=== PATIENT | female | born 1950 | race Caucasian/White ===

== ENCOUNTER 2018-03-30 23:11 | Observation (INO) | payer OTHER ==
--- NOTE | 2018-03-30 23:33 | PDOC ---
Attending Attestation - HPI HPI: 03/30/18 23:54 The patient is a 67 year old female, from [address] [place] [address], with a significant PMH of CVA, hypothyroidism, who presents to the emergency department via EMS with 2 episodes of brown colored emesis beginning at 7 pm this evening. The patient also endorses a mild headache. The patient denies any recent abdominal pain or cramping. Denies any recent sick contacts or travel. The patient denies chest pain, shortness of breath and dizziness. Denies fever, chills, diarrhea and constipation. Denies dysuria, frequency, urgency and hematuria. Allergies: Penicillins Documentation prepared by Mal Oliveira, acting as medical technologist for Nila Day MD. - Physicial Exam PE: 03/30/18 23:56 GENERAL: Awake, alert, and fully oriented, in no acute distress HEAD: No signs of trauma EYES: PERRLA, EOMI, sclera anicteric, conjunctiva clear ENT: Auricles normal inspection, hearing grossly normal, nares patent, oropharynx clear without exudates. Moist mucosa NECK: Normal ROM, supple, no lymphadenopathy, JVD, or masses LUNGS: Breath sounds equal, clear to auscultation bilaterally. No wheezes, and no crackles HEART: Regular rate and rhythm, normal S1 and S2, no murmurs, rubs or gallops ABDOMEN: Soft, nontender, normoactive bowel sounds. No guarding, no rebound. No masses EXTREMITIES: Normal range of motion, no edema. No clubbing or cyanosis. No cords, erythema, or tenderness NEUROLOGICAL: Moving all extremities. 4/5 strength in lower extremities. (+) Slightly slurred speech. Cranial nerves II through XII grossly intact. SKIN: Warm, Dry, normal turgor, no rashes or lesions noted. <Mal Oliveira - Last Filed: 03/30/18 23:56> - Resident Resident Name: Chito Carlton - ED Attending Attestation I have performed the following: I have examined & evaluated the patient, The case was reviewed & discussed with the resident, I agree w/resident's findings & plan - Medical Decision Making 03/30/18 23:42 Pt has coffee ground emesis. Rectal guaiac is negative, though stool is a brownish red. We will check all labs and admit for GI consult. 03/31/18 01:15 Pt's BUN/Cr are elevated. Reflecting that she is dry. 03/31/18 02:[address] Menjivar. <Nila Day - Last Filed: 03/31/18 02:35>
[2018-03-30] MEDS ORDERED: PANTOPRAZOLE SODIUM 40 MG in SODIUM CHLORIDE 100 ML IVPB ONE (23:39)
[2018-03-30] MEDS ORDERED: SODIUM CHLORIDE 1,000 ML IV STA (23:39)
[2018-03-30] MEDS ORDERED: ONDANSETRON 4 MG/2 ML VIAL IVPUSH ONE (23:39)
[2018-03-30] MEDS ORDERED: PANTOPRAZOLE SODIUM 40 MG/100 ML BAG IVPB ONE (23:48)
[2018-03-30] MEDS ORDERED: ONDANSETRON 4 MG/2 ML VIAL ONE (23:48)
--- NOTE | 2018-03-31 00:05 | PDOC ---
History of Present Illness - General Chief Complaint: Coffee Ground Emesis Stated Complaint: VOMITING Time Seen by Provider: 03/30/18 23:29 History Source: Patient Exam Limitations: No Limitations - History of Present Illness Initial Comments: 03/31/18 00:00 Patient is a 67F with history of hypothyroidism and stroke in 2010 w residual left sided weakness [facility] from [facility] here today complaining of 2 episodes of coffee ground emesis that started at 7pm. Patient describes two episodes of brown grainy vomit. Denies chest pain, abdominal pain, shortness of breath. Denies any changes to her weakness. Patient denies this happening before. Denies diarrhea, melena, blood in bowel movements. Takes aspirin, no blood thinners. Denies NSAID use otherwise. Past History - Past Medical History Allergies/Adverse Reactions: Allergies Allergy/AdvReac Type Severity Reaction Status Date / Time Penicillins Allergy Verified 03/30/18 23:27 COPD: No Hypercholesterolemia: Yes Psychiatric Problems: Yes (DEPRESSION) Thyroid Disease: Yes (HYPOTHYROID) Other medical history: CVA - Suicide/Smoking/Psychosocial Hx Smoking History: Never smoked Review of Systems - Review of Systems Comments:: 03/31/18 00:05 GENERAL/CONSTITUTIONAL: No fever or chills. HEAD, EYES, EARS, NOSE AND THROAT: No change in vision. No sore throat. CARDIOVASCULAR: No chest pain or shortness of breath RESPIRATORY: No cough, wheezing, or hemoptysis. GASTROINTESTINAL: +nausea, +vomiting, no diarrhea or constipation. GENITOURINARY: No dysuria, frequency, or change in urination. MUSCULOSKELETAL: No joint or muscle swelling or pain. No neck or back pain. SKIN: No rash NEUROLOGIC: No headache, vertigo, loss of consciousness, or change in strength/ sensation. ENDOCRINE: No increased thirst. No abnormal weight change HEMATOLOGIC/LYMPHATIC: No anemia, easy bleeding, or history of blood clots. ALLERGIC/IMMUNOLOGIC: No hives or skin allergy. *Physical Exam - Vital Signs Last Vital Signs Temp Pulse Resp BP Pulse Ox 97.7 F 88 18 147/84 97 03/30/18 23:22 03/30/18 23:22 03/30/18 23:22 03/30/18 23:22 03/30/18 23:22 - Physical Exam Comments: 03/31/18 00:05 GENERAL: Awake, alert, and fully oriented, in no acute distress HEAD: No signs of trauma, normocephalic, atraumatic EYES: PERRLA, EOMI, sclera anicteric, conjunctiva clear ENT: Auricles normal inspection, hearing grossly normal, nares patent, oropharynx clear without exudates. Moist mucosa NECK: Normal ROM, supple, no lymphadenopathy, JVD, or masses LUNGS: No distress, speaks full sentences, clear to auscultation bilaterally HEART: Regular rate and rhythm, normal S1 and S2, no murmurs, rubs or gallops, peripheral pulses normal and equal bilaterally. ABDOMEN: Soft, nontender, normoactive bowel sounds. No guarding, no rebound. No masses EXTREMITIES: Normal inspection, Normal range of motion, no edema. No clubbing or cyanosis. NEUROLOGICAL: Cranial nerves II through XII grossly intact. Normal speech, normal gait, L sided facial droop, l arm/leg weakness SKIN: Warm, Dry, normal turgor, no rashes or lesions noted. RECTAL: No garrett blood, normal rectal tone, no masses, brown stool. Moderate Sedation - Procedure Monitoring Vital Signs: Procedure Monitoring Vital Signs Temperature 97.7 F 03/30/18 23:22 Pulse Rate 88 03/30/18 23:22 Respiratory Rate 18 03/30/18 23:22 Blood Pressure 147/84 03/30/18 23:22 O2 Sat by Pulse Oximetry (%) 97 03/30/18 23:22 ED Treatment Course - LABORATORY CBC & Chemistry Diagram: 03/30/18 23:45 03/30/18 23:45 - ADDITIONAL ORDERS Additional order review: Laboratory Results 03/30/18 23:44 Stool Occult Blood Negative - RADIOLOGY Radiology Studies Ordered: Category Date Time Status CHEST X-RAY PORTABLE* [RAD] Stat Radiology 03/30/18 23:39 Ordered - Medications Given in the ED: ED Medications Discontinued Medications Generic Name Dose Route Start Last Admin Trade Name Freq PRN Reason Stop Dose Admin Ondansetron HCl 4 mg 03/30/18 23:39 03/30/18 23:57 Zofran Injection IVPUSH 03/30/18 23:40 4 mg ONCE ONE Administration Medical Decision Making - Medical Decision Making 03/31/18 00:06 Patient is 67F with history of stroke and hypothyroidism here today with coffee ground emesis. Vitals normal and stable. Likely GI bleed. Nontender abdomen, do not suspect performation. Suspect upper over lower bleed. No prior baseline available. Will workup with cbc, cmp, retic, stool for occult blood, ekg, cxr. FOBT negative. 03/31/18 00:48 CBC normal. CMP reassuring, does show Cr 1.5. CXR clear. D/w [place], will obs. Patient stable. *DC/Admit/Observation/Transfer Diagnosis at time of Disposition: Coffee ground emesis - Discharge Dispostion Condition at time of disposition: Stable Decision to Admit order: Yes - Referrals - Patient Instructions - Post Discharge Activity
[2018-03-31 00:08] LABS: BASO % 0.2 % (0-2.0); EOS % 0.4 % (0-4.5); HEMATOCRIT 42.5 % (32.4-45.2); HEMOGLOBIN 14.9 GM/dL (10.7-15.3); LYMPH % 3.7 % (8-40); MCH 32.4 pg (25.7-33.7); MCHC 35.1 g/dl (32.0-36.0); MEAN CELL VOLUME 92.1 fl (80-96); MEAN PLT VOLUME 9.1 fl (7.5-11.1); MONO % 2.4 % (3.8-10.2); NEUT % 93.3 % (42.8-82.8); PLATELET COUNT 344 K/MM3 (134-434); RBC 4.62 M/mm3 (3.60-5.2); RDW 13.5 % (11.6-15.6); RETICULOCYTES 1.22 % (0.5-1.5); WHITE BLOOD COUNT 12.9 K/mm3 (4.0-10.0)
[2018-03-31 00:34] LABS: INR 1.06 (0.83-1.09); PROTHROMBIN TIME (PATIENT) 12.5 SEC (9.7-13.0)
[2018-03-31 00:37] LABS: ALBUMIN 4.2 g/dl (3.4-5.0); ALK PHOS 103 U/L (45-117); ANION GAP 9 MMOL/L (8-16); BILIRUBIN,TOTAL 0.8 mg/dL (0.2-1); BLOOD UREA NITROGEN 23 mg/dL (7-18); CALCIUM 9.1 mg/dL (8.5-10.1); CHLORIDE 104 mmol/L (98-107); CO2 27 mmol/L (21-32); CREATININE 1.5 mg/dL (0.55-1.3); GLUCOSE,RANDOM 127 mg/dL (74-106); POTASSIUM 3.7 mmol/L (3.5-5.1); SGOT/AST 40 U/L (15-37); SGPT/ALT 47 U/L (13-61); SODIUM 140 mmol/L (136-145); TOT PROT 7.7 g/dl (6.4-8.2)
[2018-03-31 04:35] VITALS: BMI 30.5
[2018-03-31] MEDS: LEVOTHYROXINE NA 25 MCG TABLET (FP) PO SCH (06:09)
[2018-03-31 07:37] LABS: BASO % 0.2 % (0-2.0); EOS % 0.1 % (0-4.5); HEMATOCRIT 39.3 % (32.4-45.2); HEMOGLOBIN 13.8 GM/dL (10.7-15.3); LYMPH % 5.8 % (8-40); MCH 32.4 pg (25.7-33.7); MCHC 35.1 g/dl (32.0-36.0); MEAN CELL VOLUME 92.1 fl (80-96); MEAN PLT VOLUME 9.1 fl (7.5-11.1); MONO % 2.4 % (3.8-10.2); NEUT % 91.5 % (42.8-82.8); PLATELET COUNT 328 K/MM3 (134-434); RBC 4.27 M/mm3 (3.60-5.2); RDW 13.6 % (11.6-15.6); WHITE BLOOD COUNT 8.1 K/mm3 (4.0-10.0)
[2018-03-31 08:28] LABS: ANION GAP 7 MMOL/L (8-16); BLOOD UREA NITROGEN 20 mg/dL (7-18); CALCIUM 8.3 mg/dL (8.5-10.1); CHLORIDE 106 mmol/L (98-107); CO2 26 mmol/L (21-32); CREATININE 1.4 mg/dL (0.55-1.3); GLUCOSE,RANDOM 114 mg/dL (74-106); POTASSIUM 4.1 mmol/L (3.5-5.1); SODIUM 139 mmol/L (136-145)
[2018-03-31 10:04] LABS: ANISOCYTOSIS 2+; MACROCYTOSIS 0; OVALOCYTE 1+; PLATELET ESTIMATE NORMAL; TEAR DROP CELLS 1+
[2018-03-31 10:12] LABS: ANISOCYTOSIS 2+; MACROCYTOSIS 0; PLATELET ESTIMATE NORMAL
--- NOTE | 2018-03-31 12:47 | EKG ---
Test Reason : Blood Pressure : / mmHG Vent. Rate : 096 BPM Atrial Rate : 096 BPM P-R Int : 190 ms QRS Dur : 068 ms QT Int : 354 ms P-R-T Axes : 056 047 063 degrees QTc Int : 447 ms NORMAL SINUS RHYTHM NONSPECIFIC T WAVE ABNORMALITY ABNORMAL ECG NO PREVIOUS ECGS AVAILABLE Confirmed by THEODORE KUHN MD ([id number]) on 03/31/2018 12:46:54 PM Referred By: Confirmed By:THEODORE KUHN MD
--- NOTE | 2018-03-31 12:52 | CON.GI ---
Consult Consult Specialty:: covering for Dr Willson Referred by:: Dr Menjivar - History of Present Illness History of Present Illness: 67 y/o F with history of CVA, on chronic Aspirin was doing well until last evening when she developed coffee groing vomitus twice. In the ER, she was guaic negative. She denies, nausea, vomiting, dysphagia, rectal bleeding and melena. Her HGB was 13 on admission. - Past Medical History ...: No - Alcohol/Substance Use Hx Alcohol Use: No - Smoking History Smoking history: Never smoked Have you smoked in the past 12 months: No Home Medications - Allergies Allergies/Adverse Reactions: Allergies Allergy/AdvReac Type Severity Reaction Status Date / Time Penicillins Allergy Verified 03/30/18 23:27 - Home Medications Home Medications: Ambulatory Orders Atorvastatin Calcium PO DAILY 03/31/18 Desvenlafaxine Succinate ER PO DAILY 03/31/18 Levothyroxine Sodium PO DAILY 03/31/18 Family Disease History - Family Disease History Family History: Denies (colon and gastric cancer) Physical Exam-GI Vital Signs: Vital Signs Temperature 99.2 F 03/31/18 06:00 Pulse Rate 96 H 03/31/18 06:00 Respiratory Rate 18 03/31/18 06:00 Blood Pressure 140/81 03/31/18 06:00 O2 Sat by Pulse Oximetry (%) 96 03/31/18 04:19 Constitutional: Yes: Obese Eyes: Yes: Conjunctiva Clear HENT: Yes: Atraumatic Neck: Yes: Supple Cardiovascular: Yes: Regular Rate and Rhythm Respiratory: Yes: CTA Bilaterally ...Palpate: Yes: Soft, Tenderness, Epigastium (--mild). No: Firm/Rigid, Guarding, Hepatomegaly, Mass, Pulsatile Mass, Splenomegaly, Tenderness Labs: CBC, BMP 03/31/18 07:00 03/31/18 07:00 INR, PTT INR 1.06 (0.83-1.09) 03/30/18 23:58 Home Medications Medication Instructions Recorded Atorvastatin Calcium PO DAILY 03/31/18 Desvenlafaxine Succinate ER PO DAILY 03/31/18 Levothyroxine Sodium PO DAILY 03/31/18 Active Medications Generic Name Dose Route Start Last Admin Trade Name Freq PRN Reason Stop Dose Admin Atorvastatin Calcium 80 mg 03/31/18 22:00 Lipitor - PO HS [facility]ALF Levothyroxine Sodium 25 mcg 03/31/18 07:00 03/31/18 06:09 Synthroid - PO 25 mcg DAILY@0700 [facility] Administration Metoclopramide HCl 10 mg 03/31/18 17:00 Reglan Injection - IVPB Q8H [facility] Ondansetron HCl 4 mg 03/31/18 13:31 Zofran Injection IVPUSH Q4H PRN NAUSEA AND/OR VOMITING Venlafaxine HCl 75 mg 04/01/18 22:00 Effexor Xr - PO HS [facility] Problem List - Problems (1) Coffee ground emesis Assessment/Plan: r/o peptic ulcer disease R> continue IV PPI Reglan 10 mg q 8 because of severe nausea despite Zofran For EGD advance diet Dr Willson will see patient tomorrow Code(s): K92.0 - HEMATEMESIS
--- NOTE | 2018-03-31 13:40 | HP ---
Admitting History and Physical - Admission History of Present Illness: Patient is a 67F with history of hypothyroidism and stroke in 2010 w residual left sided weakness [facility] from [facility] complaining of 2 episodes of coffee ground emesis that started at 7pm day of admission . Patient describes two episodes of brown grainy vomit. Denies chest pain, abdominal pain , shortness of breath. Denies any changes to her weakness. Patient denies this happening before. Denies diarrhea, melena, blood in bowel movements. Takes aspirin, no blood thinners. Denies NSAID use otherwise. No change in diet. Patient has GI in [facility] last colonscopy 7 yrs ago. History Source: Patient, Medical Record Limitations to Obtaining History: No Limitations - Past Medical History [employer]: Yes: CVA Gastrointestinal: No: Gastritis, GI Bleed, Inflamatory Bowel Disease, Irritable Bowel Disease, Peptic Ulcer Disease Reproductive: Yes: Postmenopausal ...: No - Smoking History Smoking history: Never smoked Have you smoked in the past 12 months: No - Alcohol/Substance Use Hx Alcohol Use: No - Social History Usual Living Arrangement: Yes: Assisted Living ADL: Support Services History of Recent Travel: No Home Medications - Allergies Allergies/Adverse Reactions: Allergies Allergy/AdvReac Type Severity Reaction Status Date / Time Penicillins Allergy Verified 03/30/18 23:27 - Home Medications Home Medications: Ambulatory Orders Atorvastatin Calcium PO DAILY 03/31/18 Desvenlafaxine Succinate ER PO DAILY 03/31/18 Levothyroxine Sodium PO DAILY 03/31/18 Review of Systems - Review of Systems Constitutional: reports: No Symptoms Eyes: reports: No Symptoms HENT: reports: No Symptoms Neck: reports: No Symptoms Cardiovascular: reports: No Symptoms Respiratory: reports: No Symptoms Gastrointestinal: reports: No Symptoms. denies: Abdominal Pain, Bloating, Constipation, Diarrhea, Indigestion Genitourinary: reports: No Symptoms Breasts: reports: No Symptoms Reported Musculoskeletal: reports: No Symptoms Integumentary: reports: No Symptoms Neurological: reports: No Symptoms Endocrine: reports: No Symptoms Hematology/Lymphatic: reports: No Symptoms Psychiatric: reports: No Symptoms Physical Examination Vital Signs: Vital Signs Temperature 100.2 F H 03/31/18 12:54 Pulse Rate 87 03/31/18 12:54 Respiratory Rate 18 03/31/18 12:54 Blood Pressure 132/68 03/31/18 12:54 O2 Sat by Pulse Oximetry (%) 96 03/31/18 09:20 Findings/Remarks: able to provide hx - speech is slow but clear Constitutional: Yes: Well Nourished, No Distress, Obese Eyes: Yes: Conjunctiva Clear, EOM Intact HENT: Yes: Atraumatic, Normocephalic Neck: Yes: Supple, Trachea Midline Cardiovascular: Yes: Regular Rate and Rhythm Respiratory: Yes: Regular, CTA Bilaterally Gastrointestinal: Yes: Normal Bowel Sounds, Soft, Abdomen, Obese. No: Tenderness, Tenderness, Epigastrium ...Rectal Exam: Yes: Deferred, Other (done at ER - [facility] negative) Renal/: Yes: WNL Breast(s): Yes: WNL Musculoskeletal: Yes: WNL Extremities: Yes: WNL Edema: No Peripheral Pulses WNL: No Integumentary: Yes: WNL Wound/Incision: Yes: Clean/Dry, Well Approximated Neurological: Yes: Alert, Oriented, Pre-Existing Deficit Psychiatric: Yes: Alert, Oriented Labs: CBC, BMP 03/31/18 07:00 03/31/18 07:00 Problem List - Problems (1) Coffee ground emesis Assessment/Plan: trend h/h continue to ck stools for [facility] Gi consult diet full liquids will advance diet as tolerated after GI eval Code(s): K92.0 - HEMATEMESIS (2) CVA, old, hemiparesis Assessment/Plan: stable Code(s): I69.359 - HEMIPLGA FOLLOWING CEREBRAL INFARCTION AFFECTING UNSP SIDE
[2018-03-31] MEDS: ONDANSETRON 4 MG/2 ML VIAL IVPUSH PRN (17:01)
[2018-03-31] MEDS: METOCLOPRAMIDE HCL INJECTION 10 MG/2 ML VIAL IVPB SCH (18:06)
[2018-03-31] MEDS: ATORVASTATIN CA 80 MG TABLET (FP) PO SCH (21:01)
[2018-04-01] MEDS: METOCLOPRAMIDE HCL INJECTION 10 MG/2 ML VIAL IVPB SCH ×3 (01:17→17:11)
[2018-04-01] MEDS: LEVOTHYROXINE NA 25 MCG TABLET (FP) PO SCH (06:13)
[2018-04-01 08:02] LABS: BASO % 0.6 % (0-2.0); EOS % 0.8 % (0-4.5); HEMATOCRIT 38.1 % (32.4-45.2); HEMOGLOBIN 13.1 GM/dL (10.7-15.3); LYMPH % 25.7 % (8-40); MCH 31.8 pg (25.7-33.7); MCHC 34.4 g/dl (32.0-36.0); MEAN CELL VOLUME 92.3 fl (80-96); MEAN PLT VOLUME 9.9 fl (7.5-11.1); MONO % 9.1 % (3.8-10.2); NEUT % 63.8 % (42.8-82.8); PLATELET COUNT 260 K/MM3 (134-434); RBC 4.12 M/mm3 (3.60-5.2); RDW 13.7 % (11.6-15.6); WHITE BLOOD COUNT 5.9 K/mm3 (4.0-10.0)
[2018-04-01 08:54] LABS: AMYLASE 42 U/L (25-115); ANION GAP 7 MMOL/L (8-16); BLOOD UREA NITROGEN 20 mg/dL (7-18); CALCIUM 8.1 mg/dL (8.5-10.1); CHLORIDE 108 mmol/L (98-107); CO2 25 mmol/L (21-32); CREATININE 1.4 mg/dL (0.55-1.3); GLUCOSE,RANDOM 72 mg/dL (74-106); LIPASE 99 U/L (73-393); POTASSIUM 3.9 mmol/L (3.5-5.1); SODIUM 140 mmol/L (136-145)
[2018-04-01] MEDS: PANTOPRAZOLE SODIUM 40 MG VIAL IVPUSH SCH (09:23)
--- NOTE | 2018-04-01 10:49 | PN ---
GI Progress Note Subjective: GI NOte: Dr Barcenas's coverage is appreciated. No further vomiting. Regina informs me that she had a premalignant colon polyp removed prior to the CVA in 2010 that led to surveillance at a 3 month and 1 year interval. Annual colonoscopy was advised but she could not comply after suffering her CVA. Her father had an ulcer - Objective Vital Signs: Vital Signs Temperature 99.0 F 04/01/18 09:51 Pulse Rate 78 04/01/18 09:51 Respiratory Rate 20 04/01/18 09:51 Blood Pressure 134/70 04/01/18 09:51 O2 Sat by Pulse Oximetry (%) 96 03/31/18 09:20 Laboratory Tests 03/30/18 03/30/18 04/01/18 23:45 23:45 06:15 Hgb 14.9 BUN 23 H 20 H Creatinine 1.5 H 1.4 H AST 40 H ALT 47 Alkaline Phosphatase 103 04/01/18 06:15 Hgb 13.1 BUN Creatinine AST ALT Alkaline Phosphatase Constitutional: Calm ...Auscultate: Yes: Normoactive Bowel Sounds ...Palpate: Yes: Soft, Other (nontender) Labs: CBC, BMP 04/01/18 06:15 04/01/18 06:15 INR, PTT INR 1.06 (0.83-1.09) 03/30/18 23:58 Assessment/Plan Impression: Coffee ground emesis Personal h/o premalignant colon polyp and overdue for surveillance Elevated LFT Plan: Prep on 04/02 for EGD and colonoscopy on 04/03 PPI therapy Liver evaluation including sonogram Problem List - Problems (1) Coffee ground emesis Assessment/Plan: Given her coffee ground emesis and personal h/o a significant premalignant polyp I have advised both an EGD and a colonoscopy. I have discussed both procedures in detail including informed Regina of the potential for such complications as perforation and hemorrhage. She has granted an informed consent. She has already eaten solids for breakfast so will do prep tomorrow for EGD and colonoscopy on 04/03 in the AM. Discussed with the nurse Code(s): K92.0 - HEMATEMESIS (2) Colon adenoma Code(s): D12.6 - BENIGN NEOPLASM OF COLON, UNSPECIFIED (3) CVA, old, hemiparesis Code(s): I69.359 - HEMIPLGA FOLLOWING CEREBRAL INFARCTION AFFECTING UNSP SIDE (4) Abnormal liver enzymes Code(s): R74.8 - ABNORMAL LEVELS OF OTHER SERUM ENZYMES
[2018-04-01] MEDS: POLYETHYLENE GLYCOL 3350 119 GM BTL PO SCH ×2 (13:30→21:12)
--- NOTE | 2018-04-01 20:06 | PN ---
Progress Note (short form) - Note Progress Note: patient feeling better today tolerated diet well provided additonal information regarding GI hx scheduled for EGD / coloscopy on sunday Vital Signs Period Temp Pulse Resp BP Sys/Thomson Pulse Ox Last 24 Hr 98.0 F-99.0 F 75-83 18-20 107-134/56-70 95-95 sitting up in bed tolerating diet well neck supple heart s1/s2 lungs clear bilat abd soft non tenderness ext no edema /no calf tenderness CBC, BMP 04/01/18 06:15 04/01/18 06:15 Active Medications Atorvastatin Calcium (Lipitor -) 80 mg PO [facility] Last Admin: 03/31/18 21:01 Dose: 80 mg Bisacodyl (Dulcolax -) 20 mg PO ONCE ONE Stop: 04/02/18 20:01 Levothyroxine Sodium (Synthroid -) 25 mcg PO DAILY@0700 [facility] Last Admin: 04/01/18 06:13 Dose: 25 mcg Metoclopramide HCl (Reglan Injection -) 10 mg IVPB Q8H-IV [facility] Last Admin: 04/01/18 17:11 Dose: 10 mg Ondansetron HCl (Zofran Injection) 4 mg IVPUSH Q4H PRN PRN Reason: NAUSEA AND/OR VOMITING Last Admin: 03/31/18 17:01 Dose: 4 mg Pantoprazole Sodium (Protonix Iv) 40 mg IVPUSH DAILY [facility] Last Admin: 04/01/18 09:23 Dose: 40 mg Polyethylene Glycol (Miralax (For Daily Use) -) 17 gm PO TID [facility] Last Admin: 04/01/18 13:30 Dose: 17 grams Venlafaxine HCl (Effexor Xr -) 75 mg PO [facility] Assessment/Plan Impression: #Coffee ground emesis trend h/h GI consult and follow up appreciated prep on 04/02 and scheduled for EGD and Coloscopy 04/03 ( Hx of premalignant polyp ) PPi #abn LFT sonogram GI follow up #CVA stable Problem List - Problems (1) Coffee ground emesis Code(s): K92.0 - HEMATEMESIS (2) CVA, old, hemiparesis Code(s): I69.359 - HEMIPLGA FOLLOWING CEREBRAL INFARCTION AFFECTING UNSP SIDE
[2018-04-01] MEDS ORDERED: PT OWN MED DRAWER 7, Y5N ONE (20:33)
[2018-04-01] MEDS: VENLAFAXINE HCL 75 MG E.R. CAPSULES (FP) PO SCH (21:11)
[2018-04-01] MEDS: ATORVASTATIN CA 80 MG TABLET (FP) PO SCH (21:12)
[2018-04-02] MEDS: METOCLOPRAMIDE HCL INJECTION 10 MG/2 ML VIAL IVPB SCH ×3 (02:11→18:12)
[2018-04-02] MEDS: POLYETHYLENE GLYCOL 3350 119 GM BTL PO SCH ×3 (06:09→22:11)
[2018-04-02] MEDS: LEVOTHYROXINE NA 25 MCG TABLET (FP) PO SCH (06:09)
[2018-04-02 06:52] LABS: BASO % 0.7 % (0-2.0); EOS % 5.2 % (0-4.5); HEMATOCRIT 38.3 % (32.4-45.2); HEMOGLOBIN 13.4 GM/dL (10.7-15.3); LYMPH % 24.7 % (8-40); MCH 31.8 pg (25.7-33.7); MCHC 34.9 g/dl (32.0-36.0); MEAN CELL VOLUME 91.3 fl (80-96); MEAN PLT VOLUME 9.1 fl (7.5-11.1); MONO % 8.7 % (3.8-10.2); NEUT % 60.7 % (42.8-82.8); PLATELET COUNT 292 K/MM3 (134-434); RDW 13.5 % (11.6-15.6)
[2018-04-02 07:18] LABS: ALBUMIN 3.1 g/dl (3.4-5.0); ALK PHOS 74 U/L (45-117); ANION GAP 7 MMOL/L (8-16); BILIRUBIN,TOTAL 0.6 mg/dL (0.2-1); BLOOD UREA NITROGEN 17 mg/dL (7-18); CALCIUM 8.1 mg/dL (8.5-10.1); CHLORIDE 110 mmol/L (98-107); CO2 24 mmol/L (21-32); CREATININE 1.3 mg/dL (0.55-1.3); GLUCOSE,RANDOM 86 mg/dL (74-106); POTASSIUM 3.7 mmol/L (3.5-5.1); SGOT/AST 33 U/L (15-37); SGPT/ALT 34 U/L (13-61); SODIUM 141 mmol/L (136-145)
[2018-04-02] MEDS ORDERED: PEG3350/SOD SULF,BICARB,CL/KCL 4,000 ML SOLN.RECON PO ONE (09:00)
[2018-04-02] MEDS: PANTOPRAZOLE SODIUM 40 MG VIAL IVPUSH SCH (11:20)
[2018-04-02] MEDS: ONDANSETRON 4 MG/2 ML VIAL IVPUSH PRN (11:21)
--- NOTE | 2018-04-02 15:58 | PN ---
Progress Note (short form) - Note Progress Note: sitting in bed /having clear liquid diet c/o feeling nauseous in spite of reglan and Zofran no abdominal pain / no vomiting scheduled for EGD / coloscopy on sunday Vital Signs Period Temp Pulse Resp BP Sys/Thomson Pulse Ox Last 24 Hr 98.0 F-99.0 F 75-83 18-20 107-134/56-70 95-95 sitting up in bed tolerating diet well neck supple heart s1/s2 lungs clear bilat abd soft non tenderness ext no edema /no calf tenderness CBC, BMP 04/02/18 06:30 04/02/18 06:30 CBC, BMP 04/01/18 06:15 04/01/18 06:15 Active Medications Atorvastatin Calcium (Lipitor -) 80 mg PO [facility] Last Admin: 04/01/18 21:12 Dose: 80 mg Bisacodyl (Dulcolax -) 20 mg PO ONCE ONE Stop: 04/02/18 20:01 Levothyroxine Sodium (Synthroid -) 25 mcg PO DAILY@0700 [facility] BEDS AT [facility] Last Admin: 04/02/18 06:09 Dose: 25 mcg Metoclopramide HCl (Reglan Injection -) 10 mg IVPB Q8H-IV [facility]CLUDE 234 BEDS AT THE [facility] Last Admin: 04/02/18 11:21 Dose: 10 mg Ondansetron HCl (Zofran Injection) 4 mg IVPUSH Q4H PRN PRN Reason: NAUSEA AND/OR VOMITING Last Admin: 04/02/18 11:21 Dose: 4 mg Pantoprazole Sodium (Protonix Iv) 40 mg IVPUSH DAILY [facility] 234 BEDS AT THE [facility] Last Admin: 04/02/18 11:20 Dose: 40 mg Polyethylene Glycol (Miralax (For Daily Use) -) 17 gm PO TID [facility] 234 BEDS AT THE [facility] Last Admin: 04/02/18 15:29 Dose: 17 grams Venlafaxine HCl (Effexor Xr -) 75 mg PO HS [facility] 234 BEDS AT THE [facility] Last Admin: 04/01/18 21:11 Dose: 75 mg Assessment/Plan Impression: #Coffee ground emesis trend h/h GI consult and follow up appreciated prep on 04/02 and scheduled for EGD and Coloscopy 04/03 ( Hx of premalignant polyp ) PPi #abn LFT sonogram GI follow up #CVA stable Problem List - Problems (1) Coffee ground emesis Code(s): K92.0 - HEMATEMESIS (2) CVA, old, hemiparesis Code(s): I69.359 - HEMIPLGA FOLLOWING CEREBRAL INFARCTION AFFECTING UNSP SIDE
--- NOTE | 2018-04-02 17:57 | PN ---
GI Progress Note Subjective: GI NOte: Has only completed 1/4 of the prep so far but is determined to complete it. No bleeding. Sonogram revealed a fatty liver. No obstruction or masses. - Objective Vital Signs: Vital Signs Temperature 98.4 F 04/02/18 17:06 Pulse Rate 79 04/02/18 17:06 Respiratory Rate 18 04/02/18 17:06 Blood Pressure 142/79 04/02/18 17:06 O2 Sat by Pulse Oximetry (%) 95 04/02/18 09:00 Laboratory Tests 03/30/18 03/30/18 03/31/18 23:45 23:45 07:00 Hgb 14.9 13.8 AST 40 H ALT 47 Alkaline Phosphatase 103 04/02/18 04/02/18 06:30 06:30 Hgb 13.4 AST 33 ALT 34 Alkaline Phosphatase 74 Constitutional: No Distress ...Auscultate: Yes: Normoactive Bowel Sounds ...Palpate: Yes: Soft, Other (nontender) Labs: CBC, BMP 04/02/18 06:30 04/02/18 06:30 INR, PTT INR 1.06 (0.83-1.09) 03/30/18 23:58 Assessment/Plan Impression: Coffee ground emesis Personal h/o premalignant colon polyp and overdue for surveillance Elevated LFTs are resolving Fatty liver Plan: Complete prep EGD and colonoscopy tomorrow Continue PPI therapy Liver evaluation including sonogram Problem List - Problems (1) Coffee ground emesis Assessment/Plan: Given her coffee ground emesis and personal h/o a significant premalignant polyp I have advised both an EGD and a colonoscopy. I have discussed both procedures in detail including informed Regina of the potential for such complications as perforation and hemorrhage. She has granted an informed consent. She has already eaten solids for breakfast so will do prep tomorrow for EGD and colonoscopy on 04/03 in the AM. Discussed with the nurse Code(s): K92.0 - HEMATEMESIS (2) Colon adenoma Code(s): D12.6 - BENIGN NEOPLASM OF COLON, UNSPECIFIED (3) CVA, old, hemiparesis Code(s): I69.359 - HEMIPLGA FOLLOWING CEREBRAL INFARCTION AFFECTING UNSP SIDE (4) Abnormal liver enzymes Code(s): R74.8 - ABNORMAL LEVELS OF OTHER SERUM ENZYMES
[2018-04-02] MEDS ORDERED: BISACODYL 5 MG TABLET.DR (FP) PO ONE (20:00)
[2018-04-02] MEDS: ATORVASTATIN CA 80 MG TABLET (FP) PO SCH (22:09)
[2018-04-02] MEDS: VENLAFAXINE HCL 75 MG E.R. CAPSULES (FP) PO SCH (22:10)
[2018-04-03] MEDS: METOCLOPRAMIDE HCL INJECTION 10 MG/2 ML VIAL IVPB SCH ×3 (02:22→17:55)
[2018-04-03] MEDS: POLYETHYLENE GLYCOL 3350 119 GM BTL PO SCH (05:34)
[2018-04-03] MEDS: LEVOTHYROXINE NA 25 MCG TABLET (FP) PO SCH (06:11)
[2018-04-03 07:45] LABS: BASO % 0.3 % (0-2.0); EOS % 1.7 % (0-4.5); HEMATOCRIT 35.8 % (32.4-45.2); HEMOGLOBIN 12.7 GM/dL (10.7-15.3); LYMPH % 31.5 % (8-40); MCH 31.8 pg (25.7-33.7); MCHC 35.5 g/dl (32.0-36.0); MEAN CELL VOLUME 89.8 fl (80-96); MEAN PLT VOLUME 9.3 fl (7.5-11.1); MONO % 12.8 % (3.8-10.2); NEUT % 53.7 % (42.8-82.8); PLATELET COUNT 324 K/MM3 (134-434); RBC 3.99 M/mm3 (3.60-5.2); RDW 13.3 % (11.6-15.6); WHITE BLOOD COUNT 6.8 K/mm3 (4.0-10.0)
[2018-04-03] MEDS: PANTOPRAZOLE SODIUM 40 MG VIAL IVPUSH SCH (09:40)
--- NOTE | 2018-04-03 11:55 | PN ---
Progress Note (short form) - Note Progress Note: GI Procedure NOte: Please see EGD and colonoscopy reports. Retained food very suggestive of gastroparesis was found which would explain the presentation with vomiting. I was about to start Reglan but there is a major conflict with Effexor. If vomiting recurs will need to consider stopping Effexor in favor of Reglan. Colonoscopy failed to reveal any polyps. Diverticulosis was noted. Will resume solid diet. No objections to discharge. Problem List - Problems (1) Coffee ground emesis Code(s): K92.0 - HEMATEMESIS (2) Colon adenoma Code(s): D12.6 - BENIGN NEOPLASM OF COLON, UNSPECIFIED (3) CVA, old, hemiparesis Code(s): I69.359 - HEMIPLGA FOLLOWING CEREBRAL INFARCTION AFFECTING UNSP SIDE (4) Abnormal liver enzymes Code(s): R74.8 - ABNORMAL LEVELS OF OTHER SERUM ENZYMES (5) Gastroparesis Code(s): K31.84 - GASTROPARESIS (6) Diverticula of colon Code(s): K57.30 - DVRTCLOS OF LG INT W/O PERFORATION OR ABSCESS W/O BLEEDING (7) Hiatal hernia Code(s): K44.9 - DIAPHRAGMATIC HERNIA WITHOUT OBSTRUCTION OR GANGRENE
--- NOTE | 2018-04-03 18:24 | PN ---
Progress Note (short form) - Note Progress Note: returning from EGD tolerated procedure well feeling well s/p EGD / coloscopy await report / diet per GI Vital Signs Period Temp Pulse Resp BP Sys/Thomson Pulse Ox Last 24 Hr 98.0 F-99.0 F 75-83 18-20 107-134/56-70 95-95 in bed / neck supple heart s1/s2 lungs clear bilat abd soft non tenderness ext no edema /no calf tenderness CBC, [facility] 04/03/18 06:10 04/02/18 06:30 CBC, [facility] 04/02/18 06:30 04/02/18 06:30 CBC, [facility] 04/01/18 06:15 04/01/18 06:15 Active Medications Atorvastatin Calcium (Lipitor -) 80 mg PO [facility] Last Admin: 04/02/18 22:09 Dose: 80 mg Levothyroxine Sodium (Synthroid -) 25 mcg PO DAILY@0700 [facility] Last Admin: 04/03/18 06:11 Dose: Not Given Metoclopramide HCl (Reglan Injection -) 10 mg IVPB Q8H-IV [facility] Last Admin: 04/03/18 17:55 Dose: 10 mg Ondansetron HCl (Zofran Injection) 4 mg IVPUSH Q4H PRN PRN Reason: NAUSEA AND/OR VOMITING Last Admin: 04/02/18 11:21 Dose: 4 mg Pantoprazole Sodium (Protonix Iv) 40 mg IVPUSH DAILY [facility] Last Admin: 04/03/18 09:40 Dose: 40 mg Polyethylene Glycol (Miralax (For Daily Use) -) 17 gm PO DAILY [facility] Venlafaxine HCl (Effexor Xr -) 75 mg PO [facility] Last Admin: 04/02/18 22:10 Dose: 75 mg Assessment/Plan Impression: #s/p EGD / Coloscopy h/h stable await report and GI recommendation #abn LFT sonogram GI follow up c/w fatty liver #CVA stable Problem List - Problems (1) Coffee ground emesis Code(s): K92.0 - HEMATEMESIS (2) CVA, old, hemiparesis Code(s): I69.359 - HEMIPLGA FOLLOWING CEREBRAL INFARCTION AFFECTING UNSP SIDE (3) Fatty (change of) liver, not elsewhere classified Code(s): K76.0 - FATTY (CHANGE OF) LIVER, NOT ELSEWHERE CLASSIFIED (4) Gastroparesis Code(s): K31.84 - GASTROPARESIS
--- NOTE | 2018-04-03 18:29 | DS ---
Physical Examination Vital Signs: Vital Signs Temperature 98.5 F 04/03/18 17:20 Pulse Rate 74 04/03/18 17:20 Respiratory Rate 18 04/03/18 17:20 Blood Pressure 144/76 04/03/18 17:20 O2 Sat by Pulse Oximetry (%) 95 04/03/18 17:00 Findings/Remarks: Patient is a 67F with history of hypothyroidism and stroke in 2010 w residual left sided weakness coming from [facility] assisted living complaining of 2 episodes of coffee ground emesis that started at 7pm day of admission . Patient describes two episodes of brown grainy vomit. Denies chest pain, abdominal pain , shortness of breath. Denies any changes to her weakness. Patient denies this happening before. Denies diarrhea, melena, blood in bowel movements. Takes aspirin, no blood thinners. Denies NSAID use otherwise. No change in diet. Patient has GI in [facility] last colonscopy 7 yrs ago. Assessment/Plan Impression: #s/p EGD / Coloscopy per GI: GI Procedure NOte: Retained food very suggestive of gastroparesis was found which would explain the presentation with vomiting. I was about to start Reglan but there is a major conflict with Effexor. If vomiting recurs will need to consider stopping Effexor in favor of Reglan. Colonoscopy failed to reveal any polyps. Diverticulosis was noted. Will resume solid diet. No objections to discharge #abn LFT sonogram c/w fatty liver #CVA stable disposition to return to [facility] Constitutional: Yes: Well Nourished, No Distress, Calm Eyes: Yes: Conjunctiva Clear, EOM Intact HENT: Yes: WNL, Atraumatic, Normocephalic Neck: Yes: WNL, Supple, Trachea Midline Cardiovascular: Yes: WNL, Regular Rate and Rhythm Respiratory: Yes: WNL, Regular Gastrointestinal: Yes: Normal Bowel Sounds, Soft, Abdomen, Obese ...Rectal Exam: Yes: Guaiac Negative Renal/: Yes: WNL Breast(s): Yes: WNL Musculoskeletal: Yes: WNL, Muscle Weakness (left sided weakness) Extremities: No: Deformity, Shortened Edema: No Integumentary: Yes: WNL Neurological: Yes: Alert, Oriented, Pre-Existing Deficit Labs: CBC, BMP 04/03/18 06:10 04/02/18 06:30 Discharge Summary Reason For Visit: COFFEE GROUND EMESIS Current Active Problems Abnormal liver enzymes (Acute) CVA, old, hemiparesis (Acute) Coffee ground emesis (Acute) Colon adenoma (Acute) Diverticula of colon (Acute) Fatty (change of) liver, not elsewhere classified (Acute) Gastroparesis (Acute) Hiatal hernia (Acute) Condition: Stable - Instructions - Home Medications Comprehensive Discharge Medication List: Ambulatory Orders Atorvastatin Calcium PO DAILY 03/31/18 Desvenlafaxine Succinate ER PO DAILY 03/31/18 Levothyroxine Sodium PO DAILY 03/31/18
[2018-04-03] MEDS ORDERED: INSULIN (LEVEMIR) 100 UNITS/ML UNITS SQ ONE (18:52)
[2018-04-03] MEDS ORDERED: PT OWN MED DRAWER 7, Y5N ONE ×2 (18:52→20:50)
[2018-04-03] MEDS: VENLAFAXINE HCL 75 MG E.R. CAPSULES (FP) PO SCH (21:51)
[2018-04-03] MEDS: ATORVASTATIN CA 80 MG TABLET (FP) PO SCH (21:51)
[2018-04-04] MEDS: METOCLOPRAMIDE HCL INJECTION 10 MG/2 ML VIAL IVPB SCH ×2 (02:52→09:51)
[2018-04-04] MEDS: LEVOTHYROXINE NA 25 MCG TABLET (FP) PO SCH (06:33)
[2018-04-04] MEDS: PANTOPRAZOLE SODIUM 40 MG VIAL IVPUSH SCH (09:51)
[2018-04-04] MEDS ORDERED: POLYETHYLENE GLYCOL 3350 119 GM BTL PO SCH (10:00)
--- NOTE | 2018-04-04 10:17 | PN ---
Progress Note (short form) - Note Progress Note: 68 y/o female found lying comfortably in bed. No c/o pain, nausea or vomiting. Vital Signs Period Temp Pulse Resp BP Sys/Thomson Pulse Ox Last 24 Hr 97.5 F-98.5 F 65-80 16-20 118-152/60-83 95-99 CBC, BMP 04/03/18 06:10 04/02/18 06:30 HEENT- Normocephalic Neck- supple Lungs- CTAB Heart- S1/S2 Abd- soft, nt Ext- No LE edema Active Medications Atorvastatin Calcium (Lipitor -) 80 mg PO [facility] Last Admin: 04/03/18 21:51 Dose: 80 mg Levothyroxine Sodium (Synthroid -) 25 mcg PO DAILY@0700 [facility] Last Admin: 04/04/18 06:33 Dose: 25 mcg Metoclopramide HCl (Reglan Injection -) 10 mg IVPB Q8H-IV [facility] Last Admin: 04/04/18 09:51 Dose: 10 mg Ondansetron HCl (Zofran Injection) 4 mg IVPUSH Q4H PRN PRN Reason: NAUSEA AND/OR VOMITING Last Admin: 04/02/18 11:21 Dose: 4 mg Pantoprazole Sodium (Protonix Iv) 40 mg IVPUSH DAILY [facility] Last Admin: 04/04/18 09:51 Dose: 40 mg Polyethylene Glycol (Miralax (For Daily Use) -) 17 gm PO DAILY [facility] Last Admin: 04/04/18 09:53 Dose: 17 grams Venlafaxine HCl (Effexor Xr -) 75 mg PO [facility] Last Admin: 04/03/18 21:51 Dose: 75 mg Assessment/Plan Impression: #s/p EGD / Colonoscopy h/h stable F/u with GI as outpatient #abn LFT sonogram c/w fatty liver #CVA stable Plan- Dc back to [facility] today. [id number] completed. Problem List - Problems (1) Coffee ground emesis Code(s): K92.0 - HEMATEMESIS (2) CVA, old, hemiparesis Code(s): I69.359 - HEMIPLGA FOLLOWING CEREBRAL INFARCTION AFFECTING UNSP SIDE (3) Fatty (change of) liver, not elsewhere classified Code(s): K76.0 - FATTY (CHANGE OF) LIVER, NOT ELSEWHERE CLASSIFIED (4) Gastroparesis Code(s): K31.84 - GASTROPARESIS
[2018-04-04] MEDS ORDERED: PANTOPRAZOLE 40 MG TABLET (FP) PO SCH (11:15)
[2018-04-04 14:43] VITALS: BP 136/73; PULSE 67; TEMP 98.1
--- NOTE | 2018-04-04 16:42 | PATH ---
Surgical Pathology Report Patient Name: DANTE HALL [facility]. Rec. #: [id number] /Age/Gender: 1950 (Age: 68) / F Account: [id number] Location: [facility] MED/SURG Taken: 04/03/2018 Received: 04/03/2018 Reported: 04/04/2018 Physicians: Martin Willson M.D. Specimen(s) Received A: BX DUODENUM B: POLYP DUODENUM 2ND PORTION C: BX ANTRUM Clinical History Coffee ground emesis, history of polyp Postoperative diagnosis: Duodenal polyp, gastroparesis, hiatal hernia, diverticulosis Final Diagnosis A. DUODENUM, SECOND PORTION AND BULB, BIOPSY: DUODENAL MUCOSA WITH MARKED ACUTE AND CHRONIC DUODENITIS. B. DUODENUM, SECOND PORTION, POLYP, BIOPSY: POLYPOID DUODENAL MUCOSA WITH MARKED ACUTE AND CHRONIC DUODENITIS. C. STOMACH, ANTRUM, BIOPSY: GASTRIC ANTRAL MUCOSA WITH MODERATE CHRONIC ACTIVE GASTRITIS. IMMUNOHISTOCHEMICAL STAIN FOR H. PYLORI IS NEGATIVE. Electronically Signed Paradise De La Paz M.D. Gross Description A. Received in formalin, labeled "biopsy duodenum second portion and bulb" are 3 jackson, irregular portions of soft tissue ranging from 0.3-0.4 cm. in greatest dimension. The specimens are submitted in toto in one cassette. B. Received in formalin, labeled "polyp duodenum second portion" is a jackson, irregular portion of soft tissue measuring 0.3 cm. in greatest dimension. The specimen is submitted in toto in one cassette. C. Received in formalin, labeled "biopsy antrum" are 4 jackson, irregular portions of soft tissue ranging from 0.3-0.6 cm. in greatest dimension. The specimens are submitted in toto in one cassette. DL/04/03/2018 saudi/04/03/2018
== END 2018-04-04 16:37 ==
LOC: JER 23:11 → JERBED 03-31 00:49 → J7W 03-31 03:38
PROVIDERS: ADMIT Family Medicine; ATTEND Family Medicine
PROC: 0DJD8ZZ Inspection of Lower Intestinal Tract, Via Natural or Artificial Opening Endoscopic (ICD-10-PCS; principal; 2018-03-31)
PROC: 0DB98ZX Excision of Duodenum, Via Natural or Artificial Opening Endoscopic, Diagnostic (ICD-10-PCS; 2018-03-31)
PROC: 0DB68ZX Excision of Stomach, Via Natural or Artificial Opening Endoscopic, Diagnostic (ICD-10-PCS; 2018-03-31)
PROC: 3E033GC Introduction of Other Therapeutic Substance into Peripheral Vein, Percutaneous Approach (ICD-10-PCS; 2018-03-31)
PROC: 3E0337Z Introduction of Electrolytic and Water Balance Substance into Peripheral Vein, Percutaneous Approach (ICD-10-PCS; 2018-03-31)
DX: K92.0 Hematemesis (principal); I69.359 Hemiplegia and hemiparesis following cerebral infarction affecting unspecified side; Z86.010 Personal history of colon polyps; K64.8 Other hemorrhoids; Q43.8 Other specified congenital malformations of intestine; E03.9 Hypothyroidism, unspecified; I69.354 Hemiplegia and hemiparesis following cerebral infarction affecting left non-dominant side; E78.5 Hyperlipidemia, unspecified; D12.6 Benign neoplasm of colon, unspecified; R94.5 Abnormal results of liver function studies; K76.0 Fatty (change of) liver, not elsewhere classified; K31.84 Gastroparesis; K51.30 Ulcerative (chronic) rectosigmoiditis without complications; K44.9 Diaphragmatic hernia without obstruction or gangrene; K29.50 Unspecified chronic gastritis without bleeding; Z79.82 Long term (current) use of aspirin; Z88.0 Allergy status to penicillin
CPT/HCPCS: 43239; 96365; 96375; 96376; G0105; 36415; 71045-TC-FY; 76705-TC; 80048; 80053; 82150; 82272; 83690; 85025; 85044; 85610; 86850; 86870; 86900; 86901; 86902; 88305-TC; 88342-TC; 93005; 93010; 97116-GP; 97162-GP; 99282-25; G0378; J7030

== ENCOUNTER 2021-02-03 21:49 | Inpatient (IN) | payer OTHER ==
[2021-02-03] MEDS ORDERED: ACETAMINOPHEN 1000 MG/100 ML BAG IVPB ONE (22:27)
[2021-02-03] MEDS ORDERED: PANTOPRAZOLE SODIUM 40 MG VIAL IVPUSH ONE (23:06)
[2021-02-03] MEDS ORDERED: ACETAMINOPHEN INJECTION 100 ML IVPB ONE ×2 (23:13→23:23)
[2021-02-03] MEDS ORDERED: PANTOPRAZOLE SODIUM 40 MG/100 ML BAG IVPB ONE (23:13)
[2021-02-03] MEDS ORDERED: ACETAMINOPHEN 325 MG TABLET (FP) PO PRN (23:15)
[2021-02-03] MEDS ORDERED: ONDANSETRON 4 MG/2 ML VIAL IVPUSH PRN (23:16)
[2021-02-03] MEDS ORDERED: PANTOPRAZOLE SODIUM 40 MG VIAL ONE (23:23)
[2021-02-03] MEDS ORDERED: DEXTROSE 5%-0.45% SALINE 1,000 ML IV SCH (23:30)
[2021-02-03 23:36] LABS: BASO % 0.2 % (0-2.0); EOS % 0.7 % (0-4.5); HEMATOCRIT 39.3 % (32.4-45.2); HEMOGLOBIN 13.3 GM/dL (10.7-15.3); LYMPH % 7.4 % (8-40); MCH 31.4 pg (25.7-33.7); MEAN CELL VOLUME 92.6 fl (80-96); MONO % 9.4 % (3.8-10.2); NEUT % 82.3 % (42.8-82.8); PLATELET COUNT 299 10^3/uL (134-434); RBC 4.25 M/mm3 (3.60-5.2); RDW 13.2 % (11.6-15.6); WHITE BLOOD COUNT 10.5 K/mm3 (4.0-10.0)
[2021-02-03 23:59] LABS: BLOOD UREA NITROGEN 33.6 mg/dL (7-18); CALCIUM 8.6 mg/dL (8.5-10.1)
[2021-02-04 00:02] LABS: CREATININE 2.2 mg/dL (0.55-1.3)
[2021-02-04 00:03] LABS: TOT PROT 6.8 g/dl (6.4-8.2)
[2021-02-04] MEDS ORDERED: CEFTRIAXONE 1,000 MG in DEXTROSE 5%-WATER - 50 ML IVPB ONE (02:50)
[2021-02-04] MEDS ORDERED: D5-1/2NS+20 MEQ KCL - 20 MEQ/1,000 ML INFUS.BAG IV SCH ×2 (03:15→09:41)
[2021-02-04] MEDS ORDERED: KCL 10 MEQ IVPB 10 MEQ/100 ML INFUS.BAG IVPB ONE (03:56)
[2021-02-04] MEDS ORDERED: cefTRIAXone SODIUM 1 GM VIAL ONE ×2 (03:56→10:17)
[2021-02-04] MEDS: KCL 10 MEQ IVPB 10 MEQ/100 ML INFUS.BAG IVPB SCH ×6 (04:00→17:11)
[2021-02-04 05:23] VITALS: BMI 28.0
[2021-02-04] MEDS ORDERED: HEPARIN NA (PORCINE) 5,000 UNITS/ML 1ML VIAL SQ SCH (06:00)
[2021-02-04] MEDS: POLYETHYLENE GLYCOL (HEALTHYLAX) 3350 17 GM PACKET PO SCH ×2 (09:40→10:24)
[2021-02-04] MEDS: PANTOPRAZOLE SODIUM 40 MG VIAL IVPUSH SCH (09:44)
[2021-02-04] MEDS ORDERED: CEFTRIAXONE 1 GM in DEXTROSE 5%-WATER - 50 ML IVPB ONE (10:15)
[2021-02-04] MEDS ORDERED: DEXTROSE 5%-WATER - 50 ML IVPB ONE (10:17)
[2021-02-04 10:33] LABS: BASO % 0.2 % (0-2.0); EOS % 0.6 % (0-4.5); HEMATOCRIT 36.8 % (32.4-45.2); HEMOGLOBIN 12.5 GM/dL (10.7-15.3); LYMPH % 7.1 % (8-40); MCH 31.5 pg (25.7-33.7); MCHC 33.8 g/dl (32.0-36.0); MEAN PLT VOLUME 9.5 fl (7.5-11.1); MONO % 8.3 % (3.8-10.2); NEUT % 83.8 % (42.8-82.8); PLATELET COUNT 285 10^3/uL (134-434); RBC 3.96 M/mm3 (3.60-5.2); RDW 13.1 % (11.6-15.6); WHITE BLOOD COUNT 9.4 K/mm3 (4.0-10.0)
[2021-02-04 11:00] LABS: CALCIUM 8.2 mg/dL (8.5-10.1)
[2021-02-04 11:01] LABS: ALBUMIN 2.5 g/dl (3.4-5.0); MAGNESIUM 2.3 mg/dL (1.8-2.4)
[2021-02-04 11:04] LABS: CREATININE 2.2 mg/dL (0.55-1.3); PHOSPHOROUS 3.4 mg/dL (2.5-4.9)
[2021-02-04 11:05] LABS: BILIRUBIN,TOTAL 2.4 mg/dL (0.2-1); TOT PROT 5.9 g/dl (6.4-8.2)
[2021-02-04] MEDS: CYANOCOBALAMIN 1,000 MCG TABLET (FP) PO SCH (11:26)
[2021-02-04] MEDS: DOCUSATE SODIUM 100 MG CAPSULE (FP) PO SCH ×2 (11:26→23:03)
[2021-02-04] MEDS: amLODIPine BESYLATE 5 MG TABLET (FP) PO SCH (11:26)
[2021-02-04] MEDS: DEXTROSE 5%-0.45% SALINE 1,000 ML IV SCH (11:36)
[2021-02-04 13:33] LABS: INR 1.24 (0.83-1.09); PROTHROMBIN TIME (PATIENT) 14.5 SEC (9.7-13.0)
[2021-02-04] MEDS ORDERED: PHYTONADIONE 10 MG/1 ML AMP IVPB ONE (15:44)
[2021-02-04] MEDS: VENLAFAXINE HCL 75 MG E.R. CAPSULES PO SCH (23:03)
[2021-02-04] MEDS: ATORVASTATIN CA 80 MG TABLET (FP) PO SCH (23:04)
[2021-02-05] MEDS: DEXTROSE 5%-0.45% SALINE 1,000 ML IV SCH ×2 (03:13→15:33)
[2021-02-05] MEDS: LEVOTHYROXINE NA 50 MCG TABLET (FP) PO SCH ×2 (06:40→07:46)
[2021-02-05 08:40] LABS: BASO % 0.4 % (0-2.0); EOS % 1.7 % (0-4.5); HEMATOCRIT 35.4 % (32.4-45.2); HEMOGLOBIN 12.2 GM/dL (10.7-15.3); INR 1.16 (0.83-1.09); LYMPH % 13.2 % (8-40); MCH 31.7 pg (25.7-33.7); MCHC 34.4 g/dl (32.0-36.0); MEAN CELL VOLUME 92.2 fl (80-96); MEAN PLT VOLUME 9.3 fl (7.5-11.1); MONO % 11.6 % (3.8-10.2); NEUT % 73.1 % (42.8-82.8); PLATELET COUNT 297 10^3/uL (134-434); RBC 3.84 M/mm3 (3.60-5.2); RDW 13.2 % (11.6-15.6); WHITE BLOOD COUNT 5.9 K/mm3 (4.0-10.0)
[2021-02-05 08:58] LABS: ALBUMIN 2.4 g/dl (3.4-5.0); BLOOD UREA NITROGEN 22.8 mg/dL (7-18)
[2021-02-05 08:59] LABS: CALCIUM 8.4 mg/dL (8.5-10.1)
[2021-02-05 09:02] LABS: CREATININE 1.7 mg/dL (0.55-1.3)
[2021-02-05 09:03] LABS: BILIRUBIN,TOTAL 1.1 mg/dL (0.2-1)
[2021-02-05 09:04] LABS: LIPASE 157 U/L (73-393); TOT PROT 5.7 g/dl (6.4-8.2)
[2021-02-05 09:05] LABS: AMYLASE 59 U/L (25-115)
[2021-02-05] MEDS ORDERED: DEXTROSE 5%-WATER 100 ML IVPB ONE (09:36)
[2021-02-05] MEDS: CEFTRIAXONE 2 GM in DEXTROSE 5%-WATER 2 GM/100 ML BAG IVPB SCH (09:44)
[2021-02-05] MEDS: DOCUSATE SODIUM 100 MG CAPSULE (FP) PO SCH ×2 (09:45→21:24)
[2021-02-05] MEDS: POLYETHYLENE GLYCOL (HEALTHYLAX) 3350 17 GM PACKET PO SCH (09:45)
[2021-02-05] MEDS: PANTOPRAZOLE SODIUM 40 MG VIAL IVPUSH SCH (09:45)
[2021-02-05] MEDS: amLODIPine BESYLATE 5 MG TABLET (FP) PO SCH (09:46)
[2021-02-05] MEDS: KCL 10 MEQ IVPB 10 MEQ/100 ML INFUS.BAG IVPB SCH ×3 (09:46→16:01)
[2021-02-05] MEDS: CYANOCOBALAMIN 1,000 MCG TABLET (FP) PO SCH (09:46)
[2021-02-05] MEDS: ATORVASTATIN CA 80 MG TABLET (FP) PO SCH (21:22)
[2021-02-05] MEDS: VENLAFAXINE HCL 75 MG E.R. CAPSULES PO SCH (21:22)
[2021-02-06] MEDS: LEVOTHYROXINE NA 50 MCG TABLET (FP) PO SCH (06:30)
[2021-02-06] MEDS: DEXTROSE 5%-0.45% SALINE 1,000 ML IV SCH ×3 (06:32→20:29)
[2021-02-06 08:41] LABS: HEMATOCRIT 37.2 % (32.4-45.2); HEMOGLOBIN 12.6 GM/dL (10.7-15.3); MCH 31.4 pg (25.7-33.7); MCHC 33.8 g/dl (32.0-36.0); MEAN PLT VOLUME 9.3 fl (7.5-11.1); PLATELET COUNT 313 10^3/uL (134-434); RDW 13.5 % (11.6-15.6); WHITE BLOOD COUNT 6.3 K/mm3 (4.0-10.0)
[2021-02-06 09:01] LABS: ALBUMIN 2.3 g/dl (3.4-5.0); BLOOD UREA NITROGEN 13.5 mg/dL (7-18)
[2021-02-06 09:02] LABS: CALCIUM 8.5 mg/dL (8.5-10.1)
[2021-02-06 09:05] LABS: CREATININE 1.5 mg/dL (0.55-1.3)
[2021-02-06 09:07] LABS: BILIRUBIN,TOTAL 0.6 mg/dL (0.2-1); TOT PROT 5.7 g/dl (6.4-8.2)
[2021-02-06] MEDS ORDERED: DEXTROSE 5%-WATER 100 ML IVPB ONE (09:28)
[2021-02-06] MEDS: amLODIPine BESYLATE 5 MG TABLET (FP) PO SCH (10:17)
[2021-02-06] MEDS: DOCUSATE SODIUM 100 MG CAPSULE (FP) PO SCH ×2 (10:17→21:55)
[2021-02-06] MEDS: CEFTRIAXONE 2 GM in DEXTROSE 5%-WATER 2 GM/100 ML BAG IVPB SCH (10:17)
[2021-02-06] MEDS: POLYETHYLENE GLYCOL (HEALTHYLAX) 3350 17 GM PACKET PO SCH (10:17)
[2021-02-06] MEDS: CYANOCOBALAMIN 1,000 MCG TABLET (FP) PO SCH (10:17)
[2021-02-06] MEDS: PANTOPRAZOLE SODIUM 40 MG VIAL IVPUSH SCH (10:19)
[2021-02-06] MEDS ORDERED: DEXTROSE 5%-0.45% SALINE 1,000 ML IV SCH (10:30)
[2021-02-06 11:02] LABS: ANISOCYTOSIS 2+; MACROCYTOSIS 2+; PLATELET ESTIMATE NORMAL
[2021-02-06] MEDS: KCL 10 MEQ IVPB 10 MEQ/100 ML INFUS.BAG IVPB SCH ×3 (20:33→23:23)
[2021-02-06] MEDS: ATORVASTATIN CA 80 MG TABLET (FP) PO SCH (21:55)
[2021-02-06] MEDS: VENLAFAXINE HCL 75 MG E.R. CAPSULES PO SCH (21:55)
[2021-02-06] MEDS: HEPARIN NA (PORCINE) 5,000 UNITS/ML 1ML VIAL SQ SCH (21:55)
[2021-02-06] MEDS ORDERED: HEPARIN NA (PORCINE) 5,000 UNITS/ML 1ML VIAL SQ SCH (22:00)
[2021-02-07] MEDS: HEPARIN NA (PORCINE) 5,000 UNITS/ML 1ML VIAL SQ SCH ×3 (05:13→21:47)
[2021-02-07] MEDS: LEVOTHYROXINE NA 50 MCG TABLET (FP) PO SCH (06:10)
[2021-02-07] MEDS: DEXTROSE 5%-0.45% SALINE 1,000 ML IV SCH (06:44)
[2021-02-07] MEDS ORDERED: DEXTROSE 5%-WATER 100 ML IVPB ONE (08:50)
[2021-02-07] MEDS: DOCUSATE SODIUM 100 MG CAPSULE (FP) PO SCH ×2 (09:07→21:47)
[2021-02-07] MEDS: CYANOCOBALAMIN 1,000 MCG TABLET (FP) PO SCH (09:08)
[2021-02-07] MEDS: PANTOPRAZOLE SODIUM 40 MG VIAL IVPUSH SCH (09:08)
[2021-02-07] MEDS: amLODIPine BESYLATE 5 MG TABLET (FP) PO SCH (09:08)
[2021-02-07] MEDS: POLYETHYLENE GLYCOL (HEALTHYLAX) 3350 17 GM PACKET PO SCH (09:08)
[2021-02-07] MEDS: CEFTRIAXONE 2 GM in DEXTROSE 5%-WATER 2 GM/100 ML BAG IVPB SCH (09:08)
[2021-02-07 09:20] LABS: BASO % 0.8 % (0-2.0); EOS % 4.3 % (0-4.5); HEMATOCRIT 37.9 % (32.4-45.2); HEMOGLOBIN 12.7 GM/dL (10.7-15.3); LYMPH % 23.1 % (8-40); MCH 31.3 pg (25.7-33.7); MCHC 33.5 g/dl (32.0-36.0); MEAN CELL VOLUME 93.3 fl (80-96); MEAN PLT VOLUME 9.4 fl (7.5-11.1); MONO % 13.9 % (3.8-10.2); NEUT % 57.9 % (42.8-82.8); PLATELET COUNT 355 10^3/uL (134-434); RBC 4.06 M/mm3 (3.60-5.2); RDW 13.1 % (11.6-15.6); WHITE BLOOD COUNT 8.4 K/mm3 (4.0-10.0)
[2021-02-07 09:50] LABS: CALCIUM 8.9 mg/dL (8.5-10.1)
[2021-02-07 09:51] LABS: ALBUMIN 2.6 g/dl (3.4-5.0); BLOOD UREA NITROGEN 9.1 mg/dL (7-18)
[2021-02-07 09:54] LABS: CREATININE 1.4 mg/dL (0.55-1.3)
[2021-02-07 09:55] LABS: BILIRUBIN,TOTAL 0.6 mg/dL (0.2-1); TOT PROT 6.2 g/dl (6.4-8.2)
[2021-02-07] MEDS ORDERED: MIDAZOLAM HCL 2 MG/2 ML SINGLE DOSE VIAL ONE (10:52)
[2021-02-07] MEDS ORDERED: ROCURONIUM BROMIDE 50 MG/5 ML SYRINGE ONE (10:52)
[2021-02-07] MEDS ORDERED: fentaNYL CITRATE 250 MCG/5 ML VIAL ONE (10:52)
[2021-02-07] MEDS ORDERED: PROPOFOL 20 ML ONE (10:54)
[2021-02-07] MEDS ORDERED: BUPIVACAINE HCL/PF 0.5% (5MG/ML) 10 ML VIAL ONE (11:11)
[2021-02-07] MEDS ORDERED: PROMETHAZINE HCL 25 MG/1 ML VIAL IVPUSH PRN ×2 (11:13→14:01)
[2021-02-07] MEDS ORDERED: ONDANSETRON 4 MG/2 ML VIAL IVPUSH PRN ×3 (11:13→14:01)
[2021-02-07] MEDS ORDERED: LACTATED RINGERS SOLUTION 1,000 ML IV SCH ×2 (11:15→14:01)
[2021-02-07] MEDS ORDERED: NEOSTIGMINE METHYLSULFATE 0.5 MG/ML - 10 ML MDV ONE (12:59)
[2021-02-07] MEDS ORDERED: BUPIVACAINE HCL/PF 0.5% (5 MG/ML) 30 ML VIAL IJ ONE (13:09)
[2021-02-07] MEDS ORDERED: ACETAMINOPHEN 1000 MG/100 ML BAG IVPB PRN (13:36)
[2021-02-07] MEDS ORDERED: ACETAMINOPHEN 325 MG TABLET (FP) PO PRN (14:01)
[2021-02-07] MEDS ORDERED: ACETAMINOPHEN INJECTION 100 ML IVPB ONE (14:20)
[2021-02-07] MEDS ORDERED: ACETAMINOPHEN 1000 MG/100 ML BAG IVPB ONE (14:20)
[2021-02-07] MEDS ORDERED: DEXTROSE 5%-0.45% SALINE 1,000 ML IV SCH ×2 (16:15→17:00)
[2021-02-07] MEDS: KCL 10 MEQ IVPB 10 MEQ/100 ML INFUS.BAG IVPB SCH ×3 (16:31→21:47)
[2021-02-07] MEDS: VENLAFAXINE HCL 75 MG E.R. CAPSULES PO SCH (21:46)
[2021-02-07] MEDS: ATORVASTATIN CA 80 MG TABLET (FP) PO SCH (21:46)
[2021-02-08] MEDS: LEVOTHYROXINE NA 50 MCG TABLET (FP) PO SCH (06:25)
[2021-02-08] MEDS: HEPARIN NA (PORCINE) 5,000 UNITS/ML 1ML VIAL SQ SCH ×3 (06:25→21:05)
[2021-02-08 09:10] LABS: BASO % 0.3 % (0-2.0); EOS % 0.1 % (0-4.5); HEMATOCRIT 36.9 % (32.4-45.2); HEMOGLOBIN 12.2 GM/dL (10.7-15.3); LYMPH % 16.8 % (8-40); MCHC 33.1 g/dl (32.0-36.0); MEAN CELL VOLUME 93.6 fl (80-96); MEAN PLT VOLUME 9.5 fl (7.5-11.1); MONO % 7.4 % (3.8-10.2); NEUT % 75.4 % (42.8-82.8); PLATELET COUNT 349 10^3/uL (134-434); RBC 3.95 M/mm3 (3.60-5.2); RDW 13.2 % (11.6-15.6); WHITE BLOOD COUNT 18.4 K/mm3 (4.0-10.0)
[2021-02-08] MEDS ORDERED: PT OWN MED DRAWER 7, Y5N ONE (09:21)
[2021-02-08 09:24] LABS: ALBUMIN 2.3 g/dl (3.4-5.0); BLOOD UREA NITROGEN 9.1 mg/dL (7-18); CALCIUM 8.3 mg/dL (8.5-10.1)
[2021-02-08 09:27] LABS: CREATININE 1.4 mg/dL (0.55-1.3)
[2021-02-08 09:29] LABS: BILIRUBIN,TOTAL 0.7 mg/dL (0.2-1); TOT PROT 5.8 g/dl (6.4-8.2)
[2021-02-08] MEDS: DOCUSATE SODIUM 100 MG CAPSULE (FP) PO SCH ×2 (09:30→21:05)
[2021-02-08] MEDS: POLYETHYLENE GLYCOL (HEALTHYLAX) 3350 17 GM PACKET PO SCH (09:31)
[2021-02-08] MEDS: amLODIPine BESYLATE 5 MG TABLET (FP) PO SCH (09:33)
[2021-02-08] MEDS: CYANOCOBALAMIN 1,000 MCG TABLET (FP) PO SCH (09:33)
[2021-02-08] MEDS: DEXTROSE 5%-0.45% SALINE 1,000 ML IV SCH ×2 (09:34→22:56)
[2021-02-08] MEDS: PANTOPRAZOLE SODIUM 40 MG VIAL IVPUSH SCH (09:35)
[2021-02-08] MEDS: KCL 10 MEQ IVPB 10 MEQ/100 ML INFUS.BAG IVPB SCH ×3 (11:28→13:51)
[2021-02-08] MEDS: VENLAFAXINE HCL 75 MG E.R. CAPSULES PO SCH (21:05)
[2021-02-08] MEDS: ATORVASTATIN CA 80 MG TABLET (FP) PO SCH (21:05)
[2021-02-09] MEDS: HEPARIN NA (PORCINE) 5,000 UNITS/ML 1ML VIAL SQ SCH ×3 (05:06→21:05)
[2021-02-09] MEDS: LEVOTHYROXINE NA 50 MCG TABLET (FP) PO SCH (06:32)
[2021-02-09 09:45] LABS: BASO % 0.6 % (0-2.0); HEMATOCRIT 36.4 % (32.4-45.2); HEMOGLOBIN 12.3 GM/dL (10.7-15.3); LYMPH % 15.9 % (8-40); MCH 31.3 pg (25.7-33.7); MCHC 33.8 g/dl (32.0-36.0); MEAN CELL VOLUME 92.7 fl (80-96); MEAN PLT VOLUME 9.1 fl (7.5-11.1); MONO % 6.5 % (3.8-10.2); PLATELET COUNT 362 10^3/uL (134-434); RBC 3.93 M/mm3 (3.60-5.2); RDW 13.3 % (11.6-15.6); WHITE BLOOD COUNT 13.8 K/mm3 (4.0-10.0)
[2021-02-09] MEDS: POLYETHYLENE GLYCOL (HEALTHYLAX) 3350 17 GM PACKET PO SCH (10:02)
[2021-02-09] MEDS: DOCUSATE SODIUM 100 MG CAPSULE (FP) PO SCH ×2 (10:02→21:06)
[2021-02-09] MEDS: amLODIPine BESYLATE 5 MG TABLET (FP) PO SCH (10:02)
[2021-02-09] MEDS: CYANOCOBALAMIN 1,000 MCG TABLET (FP) PO SCH (10:02)
[2021-02-09] MEDS: PANTOPRAZOLE SODIUM 40 MG VIAL IVPUSH SCH (10:02)
[2021-02-09 10:05] LABS: ALBUMIN 2.3 g/dl (3.4-5.0); BLOOD UREA NITROGEN 8.9 mg/dL (7-18); CALCIUM 8.5 mg/dL (8.5-10.1)
[2021-02-09 10:08] LABS: CREATININE 1.3 mg/dL (0.55-1.3)
[2021-02-09 10:10] LABS: BILIRUBIN,TOTAL 0.6 mg/dL (0.2-1)
[2021-02-09] MEDS: DEXTROSE 5%-0.45% SALINE 1,000 ML IV SCH (11:12)
[2021-02-09] MEDS: KCL 10 MEQ IVPB 10 MEQ/100 ML INFUS.BAG IVPB SCH ×3 (13:15→22:07)
[2021-02-09] MEDS ORDERED: KCL 10 MEQ IVPB 10 MEQ/100 ML INFUS.BAG IVPB ONE (21:00)
[2021-02-09] MEDS: ATORVASTATIN CA 80 MG TABLET (FP) PO SCH (21:05)
[2021-02-09] MEDS: VENLAFAXINE HCL 75 MG E.R. CAPSULES PO SCH (21:05)
[2021-02-10] MEDS: LEVOTHYROXINE NA 50 MCG TABLET (FP) PO SCH (06:06)
[2021-02-10] MEDS: HEPARIN NA (PORCINE) 5,000 UNITS/ML 1ML VIAL SQ SCH ×3 (06:06→21:12)
[2021-02-10 09:18] LABS: BASO % 0.7 % (0-2.0); EOS % 1.4 % (0-4.5); HEMATOCRIT 36.5 % (32.4-45.2); HEMOGLOBIN 12.4 GM/dL (10.7-15.3); MCH 31.5 pg (25.7-33.7); MEAN CELL VOLUME 92.7 fl (80-96); MEAN PLT VOLUME 9.1 fl (7.5-11.1); MONO % 7.8 % (3.8-10.2); NEUT % 72.1 % (42.8-82.8); PLATELET COUNT 396 10^3/uL (134-434); RBC 3.94 M/mm3 (3.60-5.2); RDW 13.2 % (11.6-15.6); WHITE BLOOD COUNT 11.9 K/mm3 (4.0-10.0)
[2021-02-10] MEDS ORDERED: PT OWN MED DRAWER 7, Y5N ONE (09:38)
[2021-02-10] MEDS: DEXTROSE 5%-0.45% SALINE 1,000 ML IV SCH ×2 (09:45→13:37)
[2021-02-10] MEDS: DOCUSATE SODIUM 100 MG CAPSULE (FP) PO SCH ×2 (09:46→21:12)
[2021-02-10] MEDS: amLODIPine BESYLATE 5 MG TABLET (FP) PO SCH (09:46)
[2021-02-10] MEDS: POLYETHYLENE GLYCOL (HEALTHYLAX) 3350 17 GM PACKET PO SCH (09:46)
[2021-02-10] MEDS: PANTOPRAZOLE SODIUM 40 MG VIAL IVPUSH SCH (09:47)
[2021-02-10] MEDS: CYANOCOBALAMIN 1,000 MCG TABLET (FP) PO SCH (09:47)
[2021-02-10] MEDS: ATORVASTATIN CA 80 MG TABLET (FP) PO SCH (21:11)
[2021-02-10] MEDS: VENLAFAXINE HCL 75 MG E.R. CAPSULES PO SCH (21:12)
[2021-02-11] MEDS: HEPARIN NA (PORCINE) 5,000 UNITS/ML 1ML VIAL SQ SCH ×3 (05:56→21:00)
[2021-02-11] MEDS: LEVOTHYROXINE NA 50 MCG TABLET (FP) PO SCH (06:02)
[2021-02-11] MEDS ORDERED: PT OWN MED DRAWER 7, Y5N ONE (09:53)
[2021-02-11] MEDS: DEXTROSE 5%-0.45% SALINE 1,000 ML IV SCH (09:56)
[2021-02-11] MEDS: DOCUSATE SODIUM 100 MG CAPSULE (FP) PO SCH ×2 (09:59→21:00)
[2021-02-11] MEDS: POLYETHYLENE GLYCOL (HEALTHYLAX) 3350 17 GM PACKET PO SCH (09:59)
[2021-02-11] MEDS: PANTOPRAZOLE SODIUM 40 MG VIAL IVPUSH SCH (09:59)
[2021-02-11] MEDS: CYANOCOBALAMIN 1,000 MCG TABLET (FP) PO SCH (10:01)
[2021-02-11] MEDS: amLODIPine BESYLATE 5 MG TABLET (FP) PO SCH (10:01)
[2021-02-11 10:11] LABS: BASO % 0.4 % (0-2.0); EOS % 2.8 % (0-4.5); HEMATOCRIT 36.4 % (32.4-45.2); HEMOGLOBIN 12.3 GM/dL (10.7-15.3); LYMPH % 19.9 % (8-40); MCHC 33.7 g/dl (32.0-36.0); MEAN CELL VOLUME 92.1 fl (80-96); MEAN PLT VOLUME 9.3 fl (7.5-11.1); NEUT % 67.9 % (42.8-82.8); PLATELET COUNT 468 10^3/uL (134-434); RBC 3.95 M/mm3 (3.60-5.2); RDW 13.1 % (11.6-15.6); WHITE BLOOD COUNT 9.9 K/mm3 (4.0-10.0)
[2021-02-11 10:25] LABS: BLOOD UREA NITROGEN 11.6 mg/dL (7-18); CALCIUM 8.7 mg/dL (8.5-10.1)
[2021-02-11 10:28] LABS: CREATININE 1.3 mg/dL (0.55-1.3)
[2021-02-11 10:29] LABS: BILIRUBIN,TOTAL 0.5 mg/dL (0.2-1); TOT PROT 6.5 g/dl (6.4-8.2)
[2021-02-11 10:32] LABS: ALBUMIN 2.4 g/dl (3.4-5.0)
[2021-02-11] MEDS: PANTOPRAZOLE 40 MG TABLET PO SCH (12:06)
[2021-02-11] MEDS: ATORVASTATIN CA 80 MG TABLET (FP) PO SCH (21:00)
[2021-02-11] MEDS: VENLAFAXINE HCL 75 MG E.R. CAPSULES PO SCH (21:00)
[2021-02-12] MEDS: HEPARIN NA (PORCINE) 5,000 UNITS/ML 1ML VIAL SQ SCH ×3 (06:09→21:24)
[2021-02-12] MEDS: LEVOTHYROXINE NA 50 MCG TABLET (FP) PO SCH (06:09)
[2021-02-12] MEDS: amLODIPine BESYLATE 5 MG TABLET (FP) PO SCH (09:49)
[2021-02-12] MEDS: PANTOPRAZOLE 40 MG TABLET PO SCH (09:49)
[2021-02-12] MEDS: POLYETHYLENE GLYCOL (HEALTHYLAX) 3350 17 GM PACKET PO SCH (09:50)
[2021-02-12] MEDS: DOCUSATE SODIUM 100 MG CAPSULE (FP) PO SCH ×2 (09:50→21:25)
[2021-02-12] MEDS: CYANOCOBALAMIN 1,000 MCG TABLET (FP) PO SCH (09:50)
[2021-02-12] MEDS: VENLAFAXINE HCL 75 MG E.R. CAPSULES PO SCH (21:25)
[2021-02-12] MEDS: ATORVASTATIN CA 80 MG TABLET (FP) PO SCH (21:27)
[2021-02-13] MEDS: LEVOTHYROXINE NA 50 MCG TABLET (FP) PO SCH (06:07)
[2021-02-13] MEDS: HEPARIN NA (PORCINE) 5,000 UNITS/ML 1ML VIAL SQ SCH ×3 (06:08→21:09)
[2021-02-13] MEDS ORDERED: PT OWN MED DRAWER 7, Y5N ONE (11:34)
[2021-02-13] MEDS: CYANOCOBALAMIN 1,000 MCG TABLET (FP) PO SCH (12:17)
[2021-02-13] MEDS: amLODIPine BESYLATE 5 MG TABLET (FP) PO SCH (12:18)
[2021-02-13] MEDS: PANTOPRAZOLE 40 MG TABLET PO SCH (12:18)
[2021-02-13] MEDS: POLYETHYLENE GLYCOL (HEALTHYLAX) 3350 17 GM PACKET PO SCH (12:19)
[2021-02-13] MEDS: DOCUSATE SODIUM 100 MG CAPSULE (FP) PO SCH ×2 (12:20→21:09)
[2021-02-13] MEDS: VENLAFAXINE HCL 75 MG E.R. CAPSULES PO SCH (21:09)
[2021-02-13] MEDS: ATORVASTATIN CA 80 MG TABLET (FP) PO SCH (21:09)
[2021-02-14] MEDS: HEPARIN NA (PORCINE) 5,000 UNITS/ML 1ML VIAL SQ SCH (06:40)
[2021-02-14] MEDS: LEVOTHYROXINE NA 50 MCG TABLET (FP) PO SCH (06:40)
[2021-02-14] MEDS: DOCUSATE SODIUM 100 MG CAPSULE (FP) PO SCH (09:35)
[2021-02-14] MEDS: PANTOPRAZOLE 40 MG TABLET PO SCH (09:35)
[2021-02-14] MEDS: amLODIPine BESYLATE 5 MG TABLET (FP) PO SCH (09:35)
[2021-02-14] MEDS: POLYETHYLENE GLYCOL (HEALTHYLAX) 3350 17 GM PACKET PO SCH (09:35)
[2021-02-14] MEDS: CYANOCOBALAMIN 1,000 MCG TABLET (FP) PO SCH (09:35)
[2021-02-14 13:44] VITALS: BP 123/67; PULSE 73; TEMP 98.8
== END 2021-02-14 14:27 | DRG 418 ==
LOC: JER 21:49 → JERBED 23:19 → J8W 02-04 04:58
PROVIDERS: ADMIT Internal Medicine; ATTEND Internal Medicine
PROC: 0FT44ZZ Resection of Gallbladder, Percutaneous Endoscopic Approach (ICD-10-PCS; principal; 2021-02-07 11:00)
DX: K80.43 Calculus of bile duct with acute cholecystitis with obstruction (principal); N17.9 Acute kidney failure, unspecified; G81.94 Hemiplegia, unspecified affecting left nondominant side; E03.9 Hypothyroidism, unspecified; I12.9 Hypertensive chronic kidney disease with stage 1 through stage 4 chronic kidney disease, or unspecified chronic kidney disease; N18.9 Chronic kidney disease, unspecified; F32.A Depression, unspecified; K31.84 Gastroparesis; E80.6 Other disorders of bilirubin metabolism; R11.2 Nausea with vomiting, unspecified; D12.6 Benign neoplasm of colon, unspecified; K44.9 Diaphragmatic hernia without obstruction or gangrene; K76.0 Fatty (change of) liver, not elsewhere classified; M62.81 Muscle weakness (generalized); E86.0 Dehydration; R79.89 Other specified abnormal findings of blood chemistry; K57.90 Diverticulosis of intestine, part unspecified, without perforation or abscess without bleeding; E77.8 Other disorders of glycoprotein metabolism; D72.829 Elevated white blood cell count, unspecified; Z88.0 Allergy status to penicillin
CPT/HCPCS: 36415; 71045-TC-FY; 74181-TC; 76705-TC; 80053; 82150; 82248; 82550; 83690; 83735; 84100; 84443; 84484; 85025; 85610; 87040; 88304-TC; 93005; 93010; 94010; 94760; 97116-GP; 97162-GP; 99285-25; C9803; J0131; J1644; U0003; U0005